=== PATIENT | male | born 1980 | race Two or more races ===

== ENCOUNTER 2020-05-05 08:47 | Emergency (ER) | payer OTHER ==
[~2020-05-05] VITALS: Ht 177.8 cm; Wt 90.7 kg
--- NOTE | 2020-05-05 08:55 | NUR ---
ED Nurse Note: Patient BIBA from home d/t 1010 lower back pain radiating down left leg that started this AM. Patient AxO x 4, denies any recent falls.
[2020-05-05 09:00] VITALS: BP 126/75
--- NOTE | 2020-05-05 09:12 | NUR ---
ED Nurse Note: Dr. Gonzalez at bedside
--- NOTE | 2020-05-05 09:26 | Emergency Room Report ---
History of Present Illness General Chief Complaint: Back Pain-No Injury Source: Patient Present Illness HPI 40-year-old male history of low back pain, asthma presented with low back pain. He states he thought he slept in a uncomfortable position last night and then woke up with some low back pain. He states it is nonradiating. Worse with movement. Denies any fevers, nausea, vomiting, bowel or bladder incontinence. Allergies: Coded Allergies: PENICILLINS (Verified Allergy, Unknown, 05/05/20) COVID-19 Screening Contact w/high risk pt: No Recent Travel to affected area: No Experienced COVID-19 symptoms?: No COVID-19 Testing performed [employer]: No Patient History Reviewed Nursing Documentation: PMH: Agreed; PSxH: Agreed Nursing Documentation-PMH Past Medical History: No History, Except For Hx Asthma: Yes Review of Systems All Other Systems: negative except mentioned in HPI Physical Exam Vital Signs Date Time Temp Pulse Resp B/P (MAP) Pulse Ox O2 Delivery O2 Flow Rate FiO2 05/05/20 08:50 96.3 78 14 126/75 (92) 94 Room Air Sp02 EP Interpretation: reviewed, normal General Appearance: well appearing, no apparent distress Head: normocephalic, atraumatic Eyes: bilateral eye PERRL, bilateral eye EOMI ENT: hearing grossly normal, moist mucus membranes Neck: full range of motion, supple Respiratory: lungs clear, normal breath sounds, no rhonchi, no respiratory distress, no retraction, no wheezing Cardiovascular #1: normal peripheral pulses, regular rate, rhythm, no murmur Gastrointestinal: non tender, soft, non-distended, no guarding Musculoskeletal: other - No midline tenderness step-offs or deformities. Mild low back tenderness. Neurologic: alert, oriented x3, normal gait, no focal defects Skin: normal color, warm/dry Medical Decision Making Diagnostic Impression: Primary Impression: Low back pain ER Course MDM: Patient presented with low back pain. Differential included but not limited to back spasm, radiculopathy, less likely cauda equina or other serious etiology. Patient was neurologically intact on exam. He was medicated in the ER. On reassessment he was feeling improved ambulatory with a steady gait. Will be discharged with analgesics, follow-up PMD, return precautions were given. On reevaluation: Pain controlled patient ambulatory Plan-discharge with continued outpatient follow-up and analgesics and muscle relaxants. Last Vital Signs Date Time Temp Pulse Resp B/P (MAP) Pulse Ox O2 Delivery O2 Flow Rate FiO2 05/05/20 09:00 96.3 89 14 126/75 94 Room Air Status: improved Disposition: HOME, SELF-CARE Condition: Improved Scripts Cyclobenzaprine Hcl (CYCLOBENZAPRINE HCL) 5 Mg Tablet 5 MG ORAL QHS, #10 TAB Prov: Mahamed Gonzalez M.D. 05/05/20 Hydrocodone Bit/Acetaminophen 5-325* (NORCO 5-325 TABLET*) 1 Each Tablet 1 TAB ORAL Q6H PRN for Pain Scale (6-10), #10 TAB 0 Refills Prov: Mahamed Gonzalez M.D. 05/05/20 Naproxen* (NAPROXEN*) 500 Mg Tablet 500 MG ORAL TWICE A DAY PRN for Pain Scale (3-5), #30 TAB Prov: Mahamed Gonzalez M.D. 05/05/20 Mahamed Gonzalez M.D. May 05, 2020 09:26
[2020-05-05] MEDS ORDERED: Ketorolac 60mg Inj IM ONE (09:30)
[2020-05-05] MEDS ORDERED: HYDROcodone/Acetamin 5/325 tab ORAL ONE (09:30)
[2020-05-05] MEDS ORDERED: NORCO 5-325 TA1 EAC1 ORAL (10:14)
[2020-05-05] MEDS ORDERED: NAPROXEN500 M2 ORAL (10:14)
[2020-05-05] MEDS ORDERED: CYCLOBENZAPRINE5 MG ORAL (10:14)
[2020-05-05 10:20] VITALS: BP 126/75
== END 2020-05-05 10:20 | disposition home or self-care (01) ==
LOC: EDBD 08:47 → EMR 09:05
DX: M54.5 Low back pain (principal); Z88.0 Allergy status to penicillin
CPT/HCPCS: 96372; Z7502; 99283